=== PATIENT | male | born 1955 | race Caucasian/White ===

== ENCOUNTER 2016-12-09 21:13 | Observation (INO) | payer OTHER ==
[~2016-12-09] VITALS: Ht 185.4 cm; Wt 118.5 kg
[~2016-12-09 21:13] MED LIST: ASPIRIN325 MG; BENTYL20 MG PO; FLAGYL500 MG PO; HYDROCHLOROTH12.5 M3 PO; IMDUR60 MG PO; LISINOPRIL40 MG PO; LORTAB 5-325 M1 EACH PO; NIACIN500 MG PO; NITROGLYCERIN0.4 MG SL; PLAVIX75 MG PO; PROTONIX40 MG PO; SIMVASTATIN80 MG PO; ZETIA10 MG PO; ZOFRAN ODT8 MG PO
[2016-12-09 21:53] LABS: MCH 29.6 PG (29.0-34.0); MCHC 32.8 G/DL (30.0-36.0); MCV 90.1 FL (86-99); MEAN PLAT.VOLUME 9.4 uM^3 (9.0-12.4); PLATELET COUNT 272 K/uL (156-360); RBC DIS.WIDTH-CV 14.4 % (11.8-14.6); RBC DIS.WIDTH-SD 48.1 % (39-53); RED BLOOD COUNT 4.77 M/uL (4.00-5.50)
[2016-12-09 22:03] LABS: CHLORIDE 101 mEq/L (99-109); POTASSIUM 4.2 mEq/L (3.7-5.4); SODIUM 138 mEq/L (136-147)
[2016-12-09 22:05] LABS: GLUCOSE 113 mg/dL (70-99)
[2016-12-09 22:07] LABS: TOTAL BILIRUBIN 0.5 mg/dL (0.0-1.0)
[2016-12-09 22:08] LABS: TROP-I INTERPRETATION NEGATIVE; TROPONIN-I < 0.01 ng/mL (0.0-0.30)
[2016-12-09 22:09] LABS: ALKALINE PHOSPHATASE 101 IU/L (3-129); GFR ESTIMATE (CALCULATED) > 59 mL/min/
[2016-12-09 22:10] LABS: UREA NITROGEN (BUN) 20 mg/dL (9-23)
[2016-12-09 22:12] LABS: DIRECT BILIRUBIN 0.2 mg/dL (0.0-0.3)
[2016-12-09 23:20] LABS: LIPASE 143 U/L (1.0-51.0); SAMPLE HEMOLYSIS CHECK 0; SAMPLE ICTERIC CHECK 0; SAMPLE LIPEMIA CHECK 1
[2016-12-09] MEDS ORDERED: ATORVASTATIN CA80 MG PO (23:24)
[2016-12-09] MEDS ORDERED: NITROSTAT0.4 MG SL (23:24)
[2016-12-09] MEDS ORDERED: LITE COAT ASPI325 M1 PO (23:25)
[2016-12-09] MEDS ORDERED: METFORMIN HCL850 MG PO (23:26)
[2016-12-09] MEDS ORDERED: GLUCOSAMINE H1500 MG PO (23:26)
[2016-12-09] MEDS ORDERED: GLYBURIDE2.5 MG PO (23:26)
[2016-12-09] MEDS ORDERED: CITALOPRAM HBR10 MG PO (23:26)
[2016-12-10 01:29] VITALS: BP 173/86
[2016-12-10 05:57] LABS: HDL CHOLESTEROL 36 MG/DL (Desirable>=40); LDL CHOLESTEROL 43 mg/dL (Desirable<100); NON-HDL CHOLESTEROL 82 mg/dL (Desirable<160); TOTAL CHOLESTEROL 118 mg/dL (Desirable<200); TRIGLYCERIDES 194 MG/DL (Normal: <150); TROP-I INTERPRETATION NEGATIVE; TROPONIN-I < 0.01 ng/mL (0.0-0.30)
[2016-12-10 05:58] LABS: POINT-OF-CARE METER ID UU13113831
[2016-12-10 08:23] VITALS: BP 178/94
[2016-12-10 10:29] VITALS: BP 145/79
[2016-12-10 10:52] LABS: ALKALINE PHOSPHATASE 92 IU/L (3-129); ANION GAP 9 MEQ/L (2-14); CHLORIDE 102 MEQ/L (99-109); GFR ESTIMATE (CALCULATED) > 59 mL/min/; GLUCOSE 106 mg/dL (70-99); POTASSIUM 4.3 MEQ/L (3.7-5.4); SAMPLE HEMOLYSIS CHECK 0; SAMPLE ICTERIC CHECK 0; SAMPLE LIPEMIA CHECK 0; SODIUM 138 MEQ/L (136-147); TOTAL BILIRUBIN 0.7 MG/DL (0.0-1.0); UREA NITROGEN (BUN) 14 mg/dL (9-23)
[2016-12-10 10:53] LABS: TROP-I INTERPRETATION NEGATIVE; TROPONIN-I < 0.01 ng/mL (0.0-0.30)
[2016-12-10 11:31] LABS: AMYLASE 61 IU/L (1-118)
[2016-12-10 11:55] VITALS: BP 154/78
[2016-12-10 12:28] LABS: POINT-OF-CARE METER ID UU13113700
[2016-12-10 15:50] VITALS: BP 154/77
[2016-12-10] MEDS ORDERED: APRESOLINE50 MG PO (15:54)
[2016-12-10 18:23] LABS: POINT-OF-CARE METER ID UU13113700
[2016-12-10 19:47] VITALS: BP 154/83
[2016-12-10 20:47] LABS: POINT-OF-CARE METER ID UU14162513
== END 2016-12-10 21:34 | disposition home or self-care (01) ==
LOC: EME 21:13 → 5WEST 23:19 → EDOF 23:19 → 5WEST 12-10 01:25
PROVIDERS: Hospitalist; Internal Medicine; Physician Assistant Medical
DX: R07.9 Chest pain, unspecified (principal); K85.20 Alcohol induced acute pancreatitis without necrosis or infection; I16.0 Hypertensive urgency; I10 Essential (primary) hypertension; E11.9 Type 2 diabetes mellitus without complications; I25.10 Atherosclerotic heart disease of native coronary artery without angina pectoris; Z95.5 Presence of coronary angioplasty implant and graft; E78.5 Hyperlipidemia, unspecified; F10.10 Alcohol abuse, uncomplicated; E66.9 Obesity, unspecified; Z68.34 Body mass index [BMI] 34.0-34.9, adult; Z79.82 Long term (current) use of aspirin; Z82.49 Family history of ischemic heart disease and other diseases of the circulatory system; Z83.3 Family history of diabetes mellitus; Z91.030 Bee allergy status
CPT/HCPCS: 71020; 74176; 80048; 80053; 80061; 80076; 82150; 82948; 83690; 84484; 85027; 93005; 99281; 99285; G0378; J0360; J1650; J7120

== ENCOUNTER 2017-01-06 18:12 | Emergency (ER) | payer OTHER ==
[~2017-01-06] VITALS: Ht 185.4 cm; Wt 115.2 kg
[~2017-01-06 18:12] MED LIST changes: +APRESOLINE50 MG PO; +ATORVASTATIN CA80 MG PO; +CITALOPRAM HBR10 MG PO; +GLUCOSAMINE H1500 MG PO; +GLYBURIDE2.5 MG PO; +LITE COAT ASPI325 M1 PO; +METFORMIN HCL850 MG PO; +NITROSTAT0.4 MG SL
[2017-01-06 19:02] LABS: MCV 87.9 FL (86-99); MEAN PLAT.VOLUME 9.6 uM^3 (9.0-12.4); PLATELET COUNT 213 K/uL (156-360); RBC DIS.WIDTH-CV 13.2 % (11.8-14.6); RBC DIS.WIDTH-SD 42.3 % (39-53); RED BLOOD COUNT 4.55 M/uL (4.00-5.50); WHITE BLOOD COUNT 9.6 K/uL (4.1-10.2)
[2017-01-06 19:11] LABS: CHLORIDE 104 mEq/L (99-109); SODIUM 141 mEq/L (136-147)
[2017-01-06 19:13] LABS: GLUCOSE 113 mg/dL (70-99)
[2017-01-06 19:14] LABS: ANION GAP 11 MEQ/L (2-14)
[2017-01-06 19:16] LABS: GFR ESTIMATE (CALCULATED) 44 mL/min/
[2017-01-06 19:17] LABS: UREA NITROGEN (BUN) 20 mg/dL (9-23)
[2017-01-06 19:19] LABS: CREATINE KINASE 120 IU/L (1-294); TOTAL CK 120 IU/L (1-294)
[2017-01-06 19:24] LABS: TROP-I INTERPRETATION NEGATIVE; TROPONIN-I < 0.01 ng/mL (0.0-0.30)
[2017-01-06 21:40] VITALS: BP 154/79
== END 2017-01-06 21:41 | disposition home or self-care (01) ==
LOC: EME → EDBD 18:12 → EDSEX 18:12 → EME 21:41
PROVIDERS: Emergency Medicine
DX: R55 Syncope and collapse (principal); E86.0 Dehydration; E11.9 Type 2 diabetes mellitus without complications; I25.10 Atherosclerotic heart disease of native coronary artery without angina pectoris; Z79.84 Long term (current) use of oral hypoglycemic drugs; Z91.030 Bee allergy status
CPT/HCPCS: 80048; 82550; 82553; 84484; 85027; 93005; 99281; 99284; J7030

== ENCOUNTER 2017-12-30 18:22 | Emergency (ER) | payer OTHER ==
[~2017-12-30] VITALS: Ht 185.4 cm; Wt 117.9 kg
[2017-12-30 19:31] LABS: HEMATOCRIT 40.7 % (38.0-50.0); HEMOGLOBIN 13.8 G/DL (12.5-16.6); MCH 28.9 PG (29.0-34.0); MCHC 33.9 G/DL (30.0-36.0); MCV 85.1 FL (86-99); PLATELET COUNT 262 K/uL (156-360); RBC DIS.WIDTH-CV 14.2 % (11.8-14.6); RBC DIS.WIDTH-SD 44.1 % (39-53); RED BLOOD COUNT 4.78 M/uL (4.00-5.50); WHITE BLOOD COUNT 9.8 K/uL (4.1-10.2)
[2017-12-30 19:42] LABS: CHLORIDE 100 mEq/L (99-109); POTASSIUM 3.9 mEq/L (3.7-5.4); SODIUM 137 mEq/L (136-147)
[2017-12-30 19:44] LABS: GLUCOSE 109 mg/dL (70-99)
[2017-12-30 19:48] LABS: CREATININE 1.4 mg/dL (0.6-1.3); GFR ESTIMATE (CALCULATED) 55 mL/min/ (58.99-99999)
[2017-12-30 19:49] LABS: UREA NITROGEN (BUN) 19 mg/dL (9-23)
[2017-12-30 22:24] VITALS: BP 150/97
== END 2017-12-30 22:24 | disposition home or self-care (01) ==
LOC: EME 18:22
DX: G43.909 Migraine, unspecified, not intractable, without status migrainosus (principal); E11.9 Type 2 diabetes mellitus without complications; Z79.84 Long term (current) use of oral hypoglycemic drugs; Z79.02 Long term (current) use of antithrombotics/antiplatelets
CPT/HCPCS: 70450; 71046; 80048; 85027; 93005; 99281; 99285; J1200; J1885; J2765; J7030